=== PATIENT | female | born 2005 | race Hispanic/Latino ===

== ENCOUNTER 2023-04-06 12:20 | Emergency (ER) | payer MEDICAID ==
[~2023-04-06] VITALS: Ht 162.6 cm; Wt 69.4 kg
[2023-04-06 12:21] VITALS: BP 131/76; PULSE 82; RESP 16
[2023-04-06 12:48] LABS: APPEARANCE,URINE CLEAR (CLEAR); BILIRUBIN,URINE NEGATIVE (NEGATIVE); COLOR,URINE COLORLESS (YELLOW); GLUCOSE, URINE (UA) NEGATIVE (NEGATIVE); KETONES,URINE NEGATIVE (NEGATIVE); LEUKOCYTE ESTERASE ,URINE NEGATIVE Leu/uL (NEGATIVE); NITRATE,URINE NEGATIVE (NEGATIVE); OCCULT BLOOD,URINE NEGATIVE (NEGATIVE); PH,URINE 6.5 (5.0-8.0); PROTEIN,URINE NEGATIVE (NEGATIVE); UROBILINOGEN,URINE 0.2 mg/dL (0.2-1.0)
[2023-04-06 12:50] LABS: HCG,QUALITATIVE URINE NEGATIVE (NEGATIVE)
== END 2023-04-06 15:16 | disposition home or self-care (01) ==
LOC: EDH 12:20
DX: F41.9 Anxiety disorder, unspecified (principal)
CPT/HCPCS: 36415; 81003; 81025; 83605; 84484; 93005